=== PATIENT | male | born 1985 | race Caucasian/White ===

== ENCOUNTER 2023-08-13 10:38 | Outpatient (CLI) | payer OTHER, SELFPAY ==
--- NOTE | 2023-08-13 12:23 | XR_ITS ---
WS: [id number] AP pelvis, bilateral hips, 2 views each, 08/13/2023 Clinical Data: BILATERAL HIP PAIN Comparison: None. Findings: The hips show no erosion, sclerosis, narrowing, fragmentation of the femoral heads or loss of normal spherical shape of femoral heads. There are no fractures or dislocations. The SI joints and pubic sy mphysis show no abnormalities. Impression: Negative pelvis and hips.
== END 2023-08-13 10:39 | disposition home or self-care (01) ==
PROVIDERS: PCP Internal Medicine; Visit Provider Nurse Practitioner Family
DX: M25.552 Pain in left hip (principal); M25.551 Pain in right hip
CPT/HCPCS: 73522